=== PATIENT | female | born 1925 | race Caucasian/White ===

== ENCOUNTER 2017-01-18 22:29 | Emergency (ER) | payer MEDICARE ==
--- NOTE | 2017-01-18 22:55 | PHYS DOC ---
Adult General Chief Complaint Chief Complaint: right hand injury HPI HPI Patient is a 89 year old female who presents with complaint of swelling to the right hand. Patient states that she experienced a mild fall after she slipped from a chair down to the ground and caught herself with her right hand. The patient states that she bumped her right hand but did not feel like she had injured it severely. Shortly after the fall however the patient started having swelling to the top of her hand. The patient came to the emergency department by EMS from her assisted facility at [facility]. Staff sent the patient has a were monitoring her hematoma and noted that it had more than doubled in size since onset. The patient states that she is having throbbing pain to her right hand but states she is able to move all of her fingers at this time. Patient denies any other injuries. The patient is not currently on any blood thinners. Review of Systems Review of Systems Constitutional: Denies fever or chills [] Eyes: Denies change in visual acuity, redness, or eye pain [] HENT: Denies nasal congestion or sore throat [] Respiratory: Denies cough or shortness of breath [] Cardiovascular: Chronic edema, denies chest pain[] GI: Denies abdominal pain, nausea, vomiting, bloody stools or diarrhea [] : Denies dysuria or hematuria [] Musculoskeletal: Right hand pain and swelling[] Integument: Denies rash or skin lesions [] Neurologic: Denies headache, focal weakness or sensory changes [] All other systems were reviewed and found to be within normal limits, except as documented in this note. Allergies Allergies Allergies Coded Allergies Type Severity Reaction Last Updated Verified No Known Drug Allergies 01/18/17 No Physical Exam Physical Exam Constitutional: Alert, afebrile, no acute distress. [] HENT: Normocephalic, atraumatic, bilateral external ears normal, oropharynx moist, no oral exudates, nose normal. [] Eyes: PERRLA, EOMI, conjunctiva normal, no discharge. [] Neck: Normal range of motion, no tenderness, supple, no stridor. [] Cardiovascular:Heart rate regular rhythm, no murmur [] Lungs & Thorax: Bilateral breath sounds clear to auscultation [] Abdomen: Bowel sounds normal, soft, no tenderness, no masses, no pulsatile masses. [] Skin: Warm, dry, no erythema, no rash. [] Back: No tenderness, no CVA tenderness. [] Extremities: 6 cm large hematoma on dorsal aspect of right hand with overlying skin tear measuring 1 cm, full range of motion in right hand, fingers, and wrist , dorsal tenderness to palpation, capillary refill less than 2 seconds in all 5 digits of right hand. [] Neurologic: Alert and oriented X 3, normal motor function, normal sensory function, no focal deficits noted. [] Current Patient Data Vital Signs Vital Signs Date Time Temp Pulse Resp B/P (MAP) Pulse Ox O2 Delivery O2 Flow Rate FiO2 01/18/17 22:30 98.5 90 18 97 Room Air Lab Results Not performed EKG EKG Not performed[] Radiology/Procedures Radiology/Procedures 3 view right hand x-ray interpreted by me: Moderate to severe soft tissue swelling on dorsum of right hand, no fractures, normal alignment of bones of hand[] Course & Med Decision Making Course & Med Decision Making Pertinent Labs and Imaging studies reviewed. (See chart for details) Patient had an Karlos wrap applied to the right hand to help provide compression to the hematoma to help prevent further expansion. Patient also had an ice pack applied over the hand to help reduce swelling. Right hand shows no signs of fracture. Advised continued use of compression and cryotherapy as well as elevation to help reduce size of hematoma. Advise follow-up in one week with primary doctor for reevaluation and return to emergency department for any worsening symptoms. Dragon Disclaimer Dragon Disclaimer This electronic medical record was generated, in whole or in part, using a voice recognition dictation system. Departure Departure: Impression: Primary Impression: Traumatic hematoma of right hand Disposition: 01 HOME, SELF-CARE Condition: IMPROVED Referrals: JAKOB BRIZUELA MD (PCP) Patient Instructions: Hand Hematoma-SportsMed Additional Instructions: Follow-up with your primary doctor in 5-7 days for reevaluation. Return to the emergency department for any worsening symptoms. Problem Qualifiers Primary Impression: Traumatic hematoma of right hand Encounter type: initial encounter Qualified Codes: S60.221A - Contusion of right hand, initial encounter DEE ESTRADA MD Jan 18, 2017 22:55
[2017-01-18] MEDS ORDERED: ACETAMINOPHEN 325 MG TABLET PO ONE (23:30)
[2017-01-18 23:33] VITALS: BP 157/84
--- NOTE | 2017-01-19 07:26 | RAD ---
Right hand, 3 views, 01/18/2017: History: Injury The bony structures are demineralized. There are moderate scattered degenerative changes. No acute fracture or acute dislocation is identified. Slight malalignment at the DIP joint of the index finger appears chronic. There is considerable soft tissue swelling over the dorsum of the hand in the metacarpal region. A small rounded radiopacity projected over this region on the lateral view is not clearly visualized on the other views. This may represent an artifact or phlebolith. IMPRESSION: 1. Demineralization. 2. Degenerative change. 3. No acute bony abnormality is detected.
== END 2017-01-18 23:37 | disposition home or self-care (01) ==
LOC: ER 22:29
DX: S60.221A Contusion of right hand, initial encounter (principal); W07.XXXA Fall from chair, initial encounter; Y93.89 Activity, other specified; Y99.8 Other external cause status; Y92.89 Other specified places as the place of occurrence of the external cause
CPT/HCPCS: 73130; 99284